=== PATIENT | female | born 1955 | race Caucasian/White ===

== ENCOUNTER 2021-11-15 08:47 | Day surgery (SDC) | payer BC | END 2021-11-15 09:10 | disposition home or self-care (01) | LOC: SDC-PAIN 08:47 | PROVIDERS: ATTEND Psychiatry & Neurology Pain Medicine | DX: Z53.8 Procedure and treatment not carried out for other reasons (principal); E11.9 Type 2 diabetes mellitus without complications | CPT/HCPCS: 82947 ==

== ENCOUNTER 2021-11-22 08:28 | Day surgery (SDC) | payer BC ==
[2021-11-22] MEDS ORDERED: Depo-Medrol 40 MG/ML IM ONE (08:29)
[2021-11-22] MEDS ORDERED: XYLOCAINE-MPF 1% 5ML SDV IJ ONE (08:29)
[2021-11-22] MEDS ORDERED: Sodium Chloride 0.9(Preservative Free) 10 ML IJ ONE (08:29)
[2021-11-22] MEDS ORDERED: DIPRIVAN 200 MG/20 ML IV ONE (10:07)
[2021-11-22] MEDS ORDERED: Lactated Ringers 1,000 ML IV ONE (10:29)
--- NOTE | 2021-11-22 11:30 | XRAY ---
21 seconds fluoroscopy time in surgery for T12-L1 MARYANN.
--- NOTE | 2021-11-22 11:31 | XRAY ---
Indication: T12-S1 MARYANN. Intraoperative fluoroscopy provided for 21 seconds. 2 digital spot image submitted for interpretation demonstrates midline posterior needle tip projecting just posterior to L1. Small amount of contrast injected for needle tip placement. Correlate with intraoperative findings/report.
== END 2021-11-22 10:38 | disposition home or self-care (01) ==
LOC: SDC-PAIN 08:28
PROVIDERS: ATTEND Psychiatry & Neurology Pain Medicine
DX: M54.16 Radiculopathy, lumbar region (principal); E11.9 Type 2 diabetes mellitus without complications; Z79.899 Other long term (current) drug therapy
CPT/HCPCS: 62321; 72100; 77003; 82947; J1030; J2704; Q9966

== ENCOUNTER 2025-01-19 11:19 | Day surgery (SDC) | payer MEDICARE ==
[2025-01-19] MEDS: Ak-Dilate OPHTHALMIC*** 0.71 ML, Cyclogyl 1% OPHTH SOL 0.71 ML, GATIFLOXACIN 0.5% OPHTH... OP SCH (11:33)
[2025-01-19] MEDS: TETRACAINE 0.5% STERI-UNIT SOL OP ONE ×2 (11:33→11:34)
[2025-01-19] MEDS ORDERED: VIGAMOX/BSS 0.15% SYR IO NR (12:30)
[2025-01-19] MEDS ORDERED: TRIAMCINOLONE 15 MG/ML INJ INTRAOP NR (12:30)
[2025-01-19] MEDS ORDERED: BETADINE 5% OPHTHALMIC 30 ML OP NR (12:30)
[2025-01-19] MEDS ORDERED: Zofran 4 MG/2 ML VIAL IV PRN (12:30)
[2025-01-19] MEDS ORDERED: DEXMEDETOMIDINE 80 MCG/20ML-NS IV NR (12:30)
[2025-01-19] MEDS ORDERED: Epinephrine Preservative Free 1 MG/ML INTRAOP NR (12:30)
[2025-01-19 13:10] LABS: Calcium 9.2 mg/dL (8.4-10.2); Carbon Dioxide 27.0 mmol/L (22-30); Creatinine 1 0.94 mg/dL (0.52-1.04); EST GLOMERULAR FILTRATION RATE 64.5 ML/MIN; Glucose 113.0 mg/dL (74-106); Potassium 4.3 mmol/L (3.5-5.1)
[2025-01-19] MEDS ORDERED: propofoL IV ONE (13:55)
[2025-01-19] MEDS: ACETAZOLAMIDE 250 MG TABLET PO ONE (14:24)
[2025-01-19 14:26] VITALS: RESP 16
[2025-01-19 14:32] VITALS: O2SAT 96
[2025-01-19 14:35] VITALS: BP 140/82; PULSE 64; TEMP 98.4
== END 2025-01-19 14:38 | disposition home or self-care (01) ==
LOC: SDC 11:19
PROVIDERS: ATTEND Ophthalmology
DX: H25.812 Combined forms of age-related cataract, left eye (principal); I10 Essential (primary) hypertension

== ENCOUNTER 2025-02-23 05:46 | Day surgery (SDC) | payer MEDICARE ==
[2025-02-23] MEDS ORDERED: Lactated Ringers 1,000 ML IV ONE (06:08)
[2025-02-23] MEDS: TETRACAINE 0.5% STERI-UNIT SOL OP ONE ×2 (06:22→06:41)
[2025-02-23] MEDS: Ak-Dilate OPHTHALMIC*** 0.71 ML, Cyclogyl 1% OPHTH SOL 0.71 ML, GATIFLOXACIN 0.5% OPHTH... OP SCH (06:23)
[2025-02-23 06:39] VITALS: RESP 18
[2025-02-23 06:51] LABS: Calcium 8.6 mg/dL (8.4-10.2); Carbon Dioxide 22.0 mmol/L (22-30); Creatinine 1 1.17 mg/dL (0.52-1.04); EST GLOMERULAR FILTRATION RATE 49.6 ML/MIN; Glucose 166.0 mg/dL (74-106); Potassium 4.0 mmol/L (3.5-5.1)
[2025-02-23] MEDS ORDERED: propofoL IV ONE (07:22)
[2025-02-23] MEDS: ACETAZOLAMIDE 250 MG TABLET PO ONE (07:58)
[2025-02-23 08:07] VITALS: BP 119/67; PULSE 57; TEMP 97.4; O2SAT 97
[2025-02-23] MEDS ORDERED: TRIAMCINOLONE 15 MG/ML INJ INTRAOP NR (08:15)
[2025-02-23] MEDS ORDERED: BETADINE 5% OPHTHALMIC 30 ML OP NR (08:15)
[2025-02-23] MEDS ORDERED: DEXMEDETOMIDINE 80 MCG/20ML-NS IV NR (08:15)
[2025-02-23] MEDS ORDERED: OMIDRIA 1-0.3% VIAL IO NR (08:15)
[2025-02-23] MEDS ORDERED: VIGAMOX/BSS 0.15% SYR IO NR (08:15)
[2025-02-23] MEDS ORDERED: Zofran 4 MG/2 ML VIAL IV PRN (08:15)
[2025-02-23] MEDS ORDERED: DEXTENZA OP NR (08:15)
== END 2025-02-23 08:16 | disposition home or self-care (01) ==
LOC: SDC 05:46
PROVIDERS: ATTEND Ophthalmology
DX: H25.811 Combined forms of age-related cataract, right eye (principal)